=== PATIENT | male | born 1945 | race Caucasian/White ===

== ENCOUNTER 2017-08-30 17:20 | Emergency (ER) | payer MEDICARE, OTHER ==
[~2017-08-30] VITALS: Ht 177.8 cm; Wt 93.0 kg
--- NOTE | 2017-08-30 17:20 | NUR ---
BB RA 76 FROM HOME C/O ABD PAIN, BUE AND BLE EDEMA, URINARY RETENTION, SCROTAL EDEMA, FALLEN TWICE. NO TRAUMA X1 WEEK MANAGER ADMINISTRATIVE. PATIENT A/OX 4. BREATHING EVEN AND UMNLABORED. NO SOB. VITALS STABLE. SAFETY AND COMFORT MEASURES IN PLACE. AWAITING MD ORDERS.
--- NOTE | 2017-08-30 17:25 | NUR ---
NEW IV STARTED ON RAC, 18 G. BLOOD DRAWN AND SENT TO LAB.
--- NOTE | 2017-08-30 17:32 | NUR ---
AT BEDSIDE FOR EVAL.
[2017-08-30 17:43] LABS: BASOPHILS # (AUTO) 0.1 /CMM (0.0-0.2); BASOPHILS % (AUTO) 0.5 % (0.0-2.0); HEMATOCRIT 47 % (39-51); HEMOGLOBIN 15.3 g/dL (13.5-17.5); LYMPHOCYTES # (AUTO) 1.1 /CMM (0.8-4.8); LYMPHOCYTES % (AUTO) 5.6 % (20.0-44.0); MEAN CORPUSCULAR HEMOGLOBIN 31 PG (26.0-33.0); MEAN CORPUSCULAR HGB CONC 33 g/dl (31.0-36.0); MEAN CORPUSCULAR VOLUME 95 fL (80-96); MONOCYTES # (AUTO) 1.5 /CMM (0.1-1.30); MONOCYTES % (AUTO) 7.4 % (2.0-12.0); NEUTROPHILS # (AUTO) 17.1 /CMM (1.8-8.9); NEUTROPHILS % (AUTO) 86.5 % (43.0-81.0); PLATELET COUNT (AUTO) 135 /CMM (150-450); RED BLOOD CELL COUNT(AUTO) 4.92 MIL/uL (4.5-6.0); WHITE BLOOD COUNT (AUTO) 19.8 K/uL (4.3-11.0)
[2017-08-30 17:56] LABS: CALCIUM, SERUM 8.9 mg/dL (8.5-10.1); CARBON DIOXIDE 31 mmol/L (21-32); CHLORIDE 103 mmol/L (98-107); CREATININE 1.2 mg/dL (0.6-1.3); GLUCOSE 113 mg/dL (74-106); POTASSIUM 3.5 mmol/L (3.5-5.1); SODIUM SERUM 140 mmol/L (136-145); UREA NITROGEN, BLOOD 18 mg/dL (7-18)
[2017-08-30 18:00] LABS: INR 1.33 (0.87-1.13); PROTHROMBIN TIME 13.8 SECS (9.5-12.7)
[2017-08-30] MEDS ORDERED: FUROSEMIDE 40 MG/4 ML VIAL IV ONE (18:00)
[2017-08-30] MEDS ORDERED: NITROGLYCERIN PACKET 1 GM PACKET TOP ONE (18:00)
[2017-08-30] MEDS ORDERED: FUROSEMIDE 20 MG/2 ML VIAL ONE (18:01)
[2017-08-30] MEDS ORDERED: FUROSEMIDE 40 MG/4 ML VIAL ONE (18:01)
[2017-08-30] MEDS ORDERED: NITROGLYCERIN PACKET 1 GM PACKET ONE (18:02)
[2017-08-30 18:04] LABS: TROPONIN I < 0.017 ng/mL (0.00-0.056)
[2017-08-30 18:12] LABS: ALANINE AMINOTRANSFERASE 18 U/L (12-78); ALBUMIN 3.2 g/dL (3.4-5.0); ALKALINE PHOSPHATASE 59 U/L (46-116); ASPARTATE AMINOTRANSFERASE 29 U/L (15-37); B-TYPE NATRIURETIC PEPTIDE 21608 PG/ML (0-125); BILIRUBIN,DIRECT 1.1 mg/dL (0.0-0.2); TOTAL PROTEIN, SERUM 6.6 g/dL (6.4-8.2)
[2017-08-30 18:24] LABS: ABG BASE EXCESS -1.6 mmol/L; ABG OXYGEN SATURATION 91.3 % (92.0-98.5); ABG PCO2 35.4 mmHg (35.0-45.0); ABG PH 7.418 (7.350-7.450); ABG PO2 65.8 mmHg (75.0-100.0); AaDO2 41.5 mmHg; COHb 1.6 % (0.5-1.5); MetHb 0.4 % (0.0-1.5); O2Hb 89.5 % (94.0-97.0); SITE, ABG Right Radial; VENT MODE, BG Room Air
--- NOTE | 2017-08-30 18:45 | NUR ---
PATIENT O2 SAT DROPPING TO 86%, MD INFORMED, OXYGEN VIA NON-REBREATHER 15L/MIN APPLIED. WILL MONITOR.
[2017-08-30 18:59] LABS: NEUTROPHILS % (MANUAL) 81 (42-76)
[2017-08-30 19:00] LABS: BAND % (MANUAL) 5 % (0.0-5.0); BASOPHILS % (MANUAL) 0 % (0.0-2.0); EOSINOPHILS % (MANUAL) 0 % (0-4); LYMPHOCYTES % (MANUAL) 6 % (16-48); MONOCYTES % (MANUAL) 8 % (0-11.0)
--- NOTE | 2017-08-30 19:10 | NUR ---
PATIENT O2 SATURATION 100%. NON REBREATHER REMOVED, PLACED ON OXYGEN 3L/MIN VIA NC. WILL MONITOR.
--- NOTE | 2017-08-30 19:15 | NUR ---
[facility] NOTIFIED ABOUT PATIENT.
--- NOTE | 2017-08-30 19:22 | NUR ---
VITALS REMAIN STABLE. REPORT GIVEN TO DHIRAJ SAEZ FOR [facility].
[2017-08-30] MEDS ORDERED: PIPERACILLIN /TAZOBACTAM 3.375 G in IV D5W 50 ML IV ONE (19:30)
[2017-08-30] MEDS ORDERED: PIPERACILLIN /TAZOBACTAM 3.375 G VIAL IV ONE (19:40)
--- NOTE | 2017-08-30 20:28 | NUR ---
TRANSFER INFORMATION:[facility] ER - CALL FOR REPORT [phone] ALS TRANSPORT ETA 2100
--- NOTE | 2017-08-30 20:48 | NUR ---
REPORT GIVEN TO JOAN SAEZ AT [facility] FOR TRANSFER AND [facility].
[2017-08-30 21:47] VITALS: BP 133/80
--- NOTE | 2017-08-30 22:08 | NUR ---
Endorsed care to ambulance staff for transfer. patient is alert and responsive. nad on garbage pick up man. vss.
== END 2017-08-30 22:10 | disposition short-term general hospital (02) ==
LOC: ER 17:21
DX: J90 Pleural effusion, not elsewhere classified (principal); D72.829 Elevated white blood cell count, unspecified; R06.00 Dyspnea, unspecified; R17 Unspecified jaundice; R60.1 Generalized edema
CPT/HCPCS: 36415; 36600; 71010; 71250; 80048; 80076; 83605; 83880; 84484; 85025; 85730; 87040; 93005; 96365; 96375; 99285; A4606; J1940 ×2; J2543 ×2; J7060; Z7610

== ENCOUNTER 2017-09-12 12:47 | Emergency (ER) | payer MEDICARE, OTHER ==
[~2017-09-12] VITALS: Ht 177.8 cm; Wt 68.0 kg
--- NOTE | 2017-09-12 13:20 | NUR ---
AMBROSE FROM HOME. PER REPORT, CG CALLED RESCUE DT PATIENT IS UNABLE TO TAKE CARE OF HIMSELF. PATIENT RECEIVED AAO4. APPEARS IN NO APPARENT DISTRESS. RESPIRATION EVEN AND UNALBORED. SKIN IS WARM TO TOUCH AND NON DIAPHORETIC. AFEBRILE. VSS
--- NOTE | 2017-09-12 13:35 | NUR ---
URINE SAMPLE COLLECTED. CALLED LAB FOR PSYCHOTHERAPIST
[2017-09-12 13:55] LABS: BASOPHILS # (AUTO) 0.3 /CMM (0.0-0.2); BASOPHILS % (AUTO) 2.9 % (0.0-2.0); EOSINOPHILS # (AUTO) 0.2 /CMM (0.0-0.7); EOSINOPHILS % (AUTO) 1.8 % (0.0-6.0); HEMATOCRIT 49 % (39-51); HEMOGLOBIN 16.1 g/dL (13.5-17.5); LYMPHOCYTES # (AUTO) 2.2 /CMM (0.8-4.8); LYMPHOCYTES % (AUTO) 23.2 % (20.0-44.0); MEAN CORPUSCULAR HEMOGLOBIN 31 PG (26.0-33.0); MEAN CORPUSCULAR HGB CONC 33 g/dl (31.0-36.0); MEAN CORPUSCULAR VOLUME 94 fL (80-96); MONOCYTES # (AUTO) 1.1 /CMM (0.1-1.30); MONOCYTES % (AUTO) 11.3 % (2.0-12.0); NEUTROPHILS # (AUTO) 5.8 /CMM (1.8-8.9); NEUTROPHILS % (AUTO) 60.8 % (43.0-81.0); PLATELET COUNT (AUTO) 194 /CMM (150-450); RDW COEFFICIENT OF VARIATION 14.3 (11.5-15.0); WHITE BLOOD COUNT (AUTO) 9.6 K/uL (4.3-11.0)
[2017-09-12 14:05] LABS: CALCIUM, SERUM 9.1 mg/dL (8.5-10.1); CARBON DIOXIDE 32 mmol/L (21-32); CHLORIDE 102 mmol/L (98-107); GLUCOSE 93 mg/dL (74-106); POTASSIUM 4.6 mmol/L (3.5-5.1); SODIUM SERUM 138 mmol/L (136-145); UREA NITROGEN, BLOOD 26 mg/dL (7-18)
[2017-09-12 14:10] LABS: APPEARANCE,URINE Clear (CLEAR); BILIRUBIN,URINE Negative (NEGATIVE); BLOOD, URINE Trace-intact Ery/uL (NEGATIVE); COLOR,URINE Yellow (YELLOW); KETONES,URINE Negative (NEGATIVE); LEUKOCYTE ESTERASE ,URINE Negative (NEGATIVE); NITRITE, URINE Negative (NEGATIVE); PH,URINE 6.5 (5.0-8.0); PROTEIN,URINE Negative (NEGATIVE); UGLUCOSE Negative (NEGATIVE)
[2017-09-12 14:11] LABS: ALANINE AMINOTRANSFERASE 29 U/L (12-78); ALBUMIN 3.2 g/dL (3.4-5.0); ALCOHOL, BLOOD < 3 mg/dL (0-0); ALKALINE PHOSPHATASE 86 U/L (46-116); ASPARTATE AMINOTRANSFERASE 36 U/L (15-37); BILIRUBIN,DIRECT 0.5 mg/dL (0.0-0.2); BILIRUBIN,TOTAL 1.2 mg/dL (0.2-1.0); TOTAL PROTEIN, SERUM 7.2 g/dL (6.4-8.2)
[2017-09-12 14:27] LABS: BACTERIA,URINE None seen /HPF (None Seen); RBC,URINE 0-3 /HPF (0-2); SQUAMOUS EPITHELIAL CELL,UR Few /HPF (None Seen); WBC,URINE 0-3 /HPF (0-3)
--- NOTE | 2017-09-12 15:12 | NUR ---
[facility] - AWAIT[facility] CALL BACK
--- NOTE | 2017-09-12 16:07 | NUR ---
BEING TRANSFERED TO [facility] WITH ETA OF 1700 - NUMBER FOR NURSE REPORT IS [phone]
--- NOTE | 2017-09-12 16:17 | NUR ---
MD MILDRED SPRINGER
[2017-09-12 16:49] VITALS: BP 141/92
--- NOTE | 2017-09-12 16:49 | NUR ---
REPORT GIVEN TO SE PERRIN FROM [facility]
--- NOTE | 2017-09-12 17:19 | NUR ---
PATIENT TRANSPORTED TO [facility] BY [facility]. VSS
== END 2017-09-12 17:20 | disposition short-term general hospital (02) ==
LOC: ER 12:48
DX: R53.1 Weakness (principal); I50.9 Heart failure, unspecified
CPT/HCPCS: 36415; 71010; 80048; 80076; 80305; 81001; 85025; 93005; 99285; A4606; G0480; 81000-TC; Z7610

== ENCOUNTER 2022-07-11 09:43 | Emergency (ER) | payer OTHER ==
[~2022-07-11] VITALS: Ht 177.8 cm; Wt 68.0 kg
[2022-07-11 09:43] VITALS: BP 124/86
--- NOTE | 2022-07-11 09:49 | NUR ---
SHERRI GREWAL, NEIGHBOR [phone]
[2022-07-11] MEDS ORDERED: IV NS 0.9% 1,000 ML BAG IV ONE (10:00)
--- NOTE | 2022-07-11 10:00 | NUR ---
BIB RA 76 FROM HOME, NEIGHBOR HADN'T SEEN HIM FOR A COUPLE DAYS, PT STATED HE HAD GLF COUPLE HOURS AGO -LOC - BT, TESTICLES SWOLLEN PER EMS. PT A&OX4, WAS ABLE TO STAND PER EMS, POOR GAIT.
--- NOTE | 2022-07-11 10:27 | NUR ---
X RAY AT BEDSIDE
--- NOTE | 2022-07-11 10:34 | NUR ---
IV LORENZO R AC 18G. LABS DRAWN AND COLLECTED AT BEDSIDE.
[2022-07-11 10:38] LABS: BASOPHILS % (AUTO) 0.1 % (0.0-2.0); HEMATOCRIT 42 % (39-51); HEMOGLOBIN 13.9 g/dL (13.5-17.5); LYMPHOCYTES # (AUTO) 0.8 K/uL (0.8-4.8); LYMPHOCYTES % (AUTO) 4.2 % (20.0-44.0); MEAN CORPUSCULAR HGB CONC 33 g/dl (31.0-36.0); MEAN CORPUSCULAR VOLUME 90 fL (80-96); MONOCYTES # (AUTO) 2.5 K/uL (0.1-1.30); MONOCYTES % (AUTO) 12.4 % (2.0-12.0); NEUTROPHILS # (AUTO) 16.5 K/uL (1.8-8.9); NEUTROPHILS % (AUTO) 83.3 % (43.0-81.0); PLATELET COUNT (AUTO) 227 K/uL (150-450); RED BLOOD CELL COUNT(AUTO) 4.68 MIL/uL (4.5-6.0); WHITE BLOOD COUNT (AUTO) 19.9 K/uL (4.3-11.0)
--- NOTE | 2022-07-11 10:42 | NUR ---
COVID TEST COLLECTED AND SENT
[2022-07-11 11:38] LABS: CALCIUM, SERUM 9.4 mg/dL (8.5-10.1); CARBON DIOXIDE 25 mmol/L (21-32); CHLORIDE 99 mmol/L (98-107); CREATININE 1.7 mg/dL (0.6-1.3); GLUCOSE 115 mg/dL (74-106); SODIUM SERUM 136 mmol/L (136-145); UREA NITROGEN, BLOOD 33 mg/dL (7-18)
--- NOTE | 2022-07-11 11:49 | NUR ---
CALLED [facility], REQUESTED SNAPSHOT
[2022-07-11 11:50] LABS: ALANINE AMINOTRANSFERASE 33 U/L (12-78); ALBUMIN 3.6 g/dL (3.4-5.0); ALKALINE PHOSPHATASE 49 U/L (46-116); ASPARTATE AMINOTRANSFERASE 95 U/L (15-37); BILIRUBIN,DIRECT 0.4 mg/dL (0.0-0.2); BILIRUBIN,TOTAL 1.5 mg/dL (0.2-1.0); TOTAL PROTEIN, SERUM 7.6 g/dL (6.4-8.2)
--- NOTE | 2022-07-11 12:30 | NUR ---
[facility], AWAITING CALL BACK FROM
[2022-07-11] MEDS ORDERED: ASPIRIN 81 MG TAB.CHEW PO ONE (13:00)
--- NOTE | 2022-07-11 13:46 | NUR ---
CALL FROM SITA SAEZ,[place],ACCEPTED AT [facility] BY ABAD CACERES,REPORT TO [phone], [facility] ETA 1400
[2022-07-11] MEDS ORDERED: ASPIRIN 81 MG TAB.CHEW ONE (14:05)
--- NOTE | 2022-07-11 14:05 | NUR ---
RN CALLED AND GAVE REPORT TO ES PARRISH AT [facility]
== END 2022-07-11 14:37 | disposition short-term general hospital (02) ==
LOC: ER 09:45
DX: S72.001A Fracture of unspecified part of neck of right femur, initial encounter for closed fracture (principal); W18.30XA Fall on same level, unspecified, initial encounter; Y92.019 Unspecified place in single-family (private) house as the place of occurrence of the external cause; E78.5 Hyperlipidemia, unspecified; I11.0 Hypertensive heart disease with heart failure; I50.9 Heart failure, unspecified; Z20.822 Contact with and (suspected) exposure to COVID-19; N50.89 Other specified disorders of the male genital organs; I44.7 Left bundle-branch block, unspecified; D72.829 Elevated white blood cell count, unspecified; N17.9 Acute kidney failure, unspecified; M62.82 Rhabdomyolysis; I21.4 Non-ST elevation (NSTEMI) myocardial infarction; R94.02 Abnormal brain scan
CPT/HCPCS: 99285; 70450; 71045; 87426; 93005; 73502; 84145; 85025; 80048; 82550; 83605 ×2; 80076; 36415; 84484 ×2; 85730; 87081; 83880; 82553; 87040 ×2; J7030; C9803

== ENCOUNTER 2022-09-24 05:25 | Emergency (ER) | payer OTHER ==
[~2022-09-24] VITALS: Ht 177.8 cm; Wt 72.6 kg
--- NOTE | 2022-09-24 05:37 | NUR ---
AMBROSE 860 FROM AL FOR PULLED OUT F/C. TOLERATING R/A WELL WITH NO RESP DISTRESS. SAFETY MEASURES IN PLACE.
--- NOTE | 2022-09-24 06:33 | NUR ---
16FR F/C INSERTED WITH URINE RETURN
--- NOTE | 2022-09-24 06:39 | NUR ---
REPORT GIVEN TO KELLEY [employer] MANAGER OF [facility] FOR [facility]
[2022-09-24 06:42] VITALS: BP 142/79
--- NOTE | 2022-09-24 07:10 | NUR ---
[facility] ETA: [id number]
--- NOTE | 2022-09-24 07:31 | NUR ---
[facility] AT THE BED SIDE TO [employer] SALES ASSOCIATE THE PT. REPORT GIVEN TO MAGALIS AT THE FACILITY
== END 2022-09-24 07:40 ==
LOC: ER 05:37
DX: T83.021A Displacement of indwelling urethral catheter, initial encounter (principal); I50.9 Heart failure, unspecified

== ENCOUNTER 2022-10-14 16:40 | Emergency (ER) | payer OTHER ==
[~2022-10-14] VITALS: Ht 172.7 cm; Wt 73.5 kg
--- NOTE | 2022-10-14 18:00 | NUR ---
COUDE CHIN CATH INSERTED, ABLE TO DRAIN 800CC URINE OF YELLOW COLOR.
--- NOTE | 2022-10-14 18:08 | NUR ---
ARRANGED TRANSPORT TO PTS FACILITY WITH [facility]. ETA IS 1920.
--- NOTE | 2022-10-14 18:16 | NUR ---
SPOKE W/ MALLORY RN ECONOMIC RESEARCH ASSISTANT AT [facility]; PT REPORT AND D/C INSTRUCTIONS GIVEN.
--- NOTE | 2022-10-14 18:53 | NUR ---
[facility] AT BEDSIDE FOR SERVICE BAR CASHIER.
--- NOTE | 2022-10-14 19:05 | NUR ---
PT DISCHARGED TO [facility] IN STABLE CONDITION VIA [place], ACCOMPANIED BY 2 1st pressman.
[2022-10-14 19:06] VITALS: BP 138/90
== END 2022-10-14 19:06 ==
LOC: ER 16:43
DX: T83.091A Other mechanical complication of indwelling urethral catheter, initial encounter (principal); I50.9 Heart failure, unspecified; Z88.8 Allergy status to other drugs, medicaments and biological substances
CPT/HCPCS: 99284; 51702; A4217

== ENCOUNTER 2022-10-20 01:57 | Emergency (ER) | payer OTHER ==
[~2022-10-20] VITALS: Ht 177.8 cm; Wt 72.6 kg
--- NOTE | 2022-10-20 02:20 | NUR ---
TO ER BED 3. [id number]. FOR NO URINARY OUTPUT FROM CHIN CATH. LAST NOTED DRAINING @ 1900, PT IS ALERT AND ORIENTED . RR EVEN AND NON LABORED
[2022-10-20 03:37] LABS: BILIRUBIN,URINE NEGATIVE (NEGATIVE); COLOR,URINE DARK YELLOW (YELLOW); LEUKOCYTE ESTERASE ,URINE 3+ (NEGATIVE); NITRITE, URINE POSITIVE (NEGATIVE); PH,URINE 6.5 (5.0-8.0); PROTEIN,URINE TRACE mg/dl (NEGATIVE); UGLUCOSE NEGATIVE (NEGATIVE); UROBILINOGEN,URINE 0.2 EU/dL (0.2)
[2022-10-20 03:39] LABS: BACTERIA,URINE Moderate /HPF (None Seen); RBC,URINE TOO NUMEROUS TO COUN /HPF (0-2); SQUAMOUS EPITHELIAL CELL,UR Few /HPF (None Seen)
[2022-10-20] MEDS ORDERED: CIPR500T5 PO (03:55)
--- NOTE | 2022-10-20 04:17 | NUR ---
[facility] CALLED FOR BLS GOING BACK TO SNF PER [facility]GE ETA 30 MIN
--- NOTE | 2022-10-20 04:43 | NUR ---
[facility] AT BEDSIDE FOR TRANSPORT
[2022-10-20 05:32] VITALS: BP 161/91
== END 2022-10-20 05:33 | disposition home or self-care (01) ==
LOC: ER 02:14
DX: T83.091A Other mechanical complication of indwelling urethral catheter, initial encounter (principal); N39.0 Urinary tract infection, site not specified; K40.90 Unilateral inguinal hernia, without obstruction or gangrene, not specified as recurrent; R33.9 Retention of urine, unspecified; I50.9 Heart failure, unspecified; Z88.8 Allergy status to other drugs, medicaments and biological substances; Z79.899 Other long term (current) drug therapy
CPT/HCPCS: 76870-TC; 81001; 87086-TC

== ENCOUNTER 2022-10-21 01:40 | Emergency (ER) | payer OTHER ==
[~2022-10-21] VITALS: Ht 177.8 cm; Wt 72.6 kg
[~2022-10-21 01:40] MED LIST: CIPR500T5 PO
[2022-10-21 02:13] VITALS: BP 130/62
--- NOTE | 2022-10-21 02:13 | NUR ---
[id number] FROM [facility] B[facility]C C/O CHIN NOT IN PLACE
--- NOTE | 2022-10-21 02:27 | NUR ---
ADVANCED F/C WITH URINE RETURN. 350 ML URINE OUTPUT
--- NOTE | 2022-10-21 03:51 | NUR ---
[facility] FOR DC ETA 4:45
--- NOTE | 2022-10-21 04:15 | NUR ---
FACILITY CALLED, PT WILL BE RETURNING
--- NOTE | 2022-10-21 04:47 | NUR ---
REPORT GIVEN TO EMS
== END 2022-10-21 04:51 ==
LOC: ER 01:47
DX: T83.028A Displacement of other urinary catheter, initial encounter (principal); I50.9 Heart failure, unspecified; Z88.8 Allergy status to other drugs, medicaments and biological substances; Z79.899 Other long term (current) drug therapy; Y84.6 Urinary catheterization as the cause of abnormal reaction of the patient, or of later complication, without mention of misadventure at the time of the procedure